=== PATIENT | female | born 1985 | race Caucasian/White ===

== ENCOUNTER → 2021-04-07 | Day surgery (SDC) | payer OTHER ==
[~2021-04-07] MED LIST: ALBUTEROL2.5 MG/3 M INH; BUSPIRONE HCL5 MG PO; FLONASE ALLER15.8 ML; HYDROCODON-ACE1 EAC6 PO; HYDROXYZINE HCL25 MG PO; PROZAC40 MG PO; VITAMIN B-121000 MCG PO; VITAMIN D31250 MCG PO; ZYRTEC10 MG PO
[2021-04-07 10:26] LABS: HEMOGLOBIN 12.5 gm/dl (12.3-15.3); RED BLOOD COUNT 4.26 M/UL (4.00-5.10); WHITE BLOOD COUNT 8.8 K/UL (4.5-11.0)
[2021-04-07 10:48] LABS: BUN/CREATININE RATIO 12 (0-10)
== END | disposition home or self-care (01) ==
LOC: OR 09:10
PROVIDERS: Obstetrics & Gynecology
DX: O02.1 Missed abortion (principal); I87.2 Venous insufficiency (chronic) (peripheral); E78.5 Hyperlipidemia, unspecified; E11.9 Type 2 diabetes mellitus without complications; E55.9 Vitamin D deficiency, unspecified; F41.9 Anxiety disorder, unspecified; F32.9 Major depressive disorder, single episode, unspecified; E66.01 Morbid (severe) obesity due to excess calories; Z68.42 Body mass index [BMI] 45.0-49.9, adult; Z79.84 Long term (current) use of oral hypoglycemic drugs; Z79.899 Other long term (current) drug therapy; Z88.8 Allergy status to other drugs, medicaments and biological substances; Z20.822 Contact with and (suspected) exposure to COVID-19
CPT/HCPCS: 80053; 81001; 82962; 85025; J1100; J2001; J2250; J2405; J2704; J2795; J3010; J7120

== ENCOUNTER 2021-08-28 12:23 | Emergency (ER) | payer OTHER ==
[2021-08-28 13:26] LABS: RED BLOOD COUNT 4.96 M/UL (4.00-5.10); WHITE BLOOD COUNT 8.4 K/UL (4.5-11.0)
[2021-08-28 13:46] LABS: BUN/CREATININE RATIO 23 (0-10)
[2021-08-28] MEDS ORDERED: CYCLOBENZAPRINE10 MG PO (14:48)
== END 2021-08-28 15:25 | disposition home or self-care (01) ==
LOC: ER1 12:23
PROVIDERS: Nurse Practitioner
DX: R07.9 Chest pain, unspecified (principal); I10 Essential (primary) hypertension; E11.9 Type 2 diabetes mellitus without complications; Z79.84 Long term (current) use of oral hypoglycemic drugs; Z79.899 Other long term (current) drug therapy
CPT/HCPCS: 71045; 80048; 82550; 82553; 83874; 84484; 85025; 93005; 96372; 99285; J2360

== ENCOUNTER 2021-12-02 03:55 | Emergency (ER) | payer OTHER ==
[~2021-12-02 03:55] MED LIST changes: +CYCLOBENZAPRINE10 MG PO
[2021-12-02 04:29] LABS: HEMOGLOBIN 14.5 gm/dl (12.3-15.3); RED BLOOD COUNT 4.95 M/UL (4.00-5.10); WHITE BLOOD COUNT 13.4 K/UL (4.5-11.0)
[2021-12-02 04:54] LABS: BUN/CREATININE RATIO 18 (0-10)
[2021-12-02] MEDS ORDERED: METOPROLOL SUCC25 MG PO (08:18)
== END 2021-12-02 09:03 | disposition home or self-care (01) ==
LOC: ER1 03:55
PROVIDERS: Family Medicine
DX: I47.1 Supraventricular tachycardia (principal); I10 Essential (primary) hypertension; E11.9 Type 2 diabetes mellitus without complications; Z79.84 Long term (current) use of oral hypoglycemic drugs
CPT/HCPCS: 71045; 80053; 81001; 82550; 82553; 84439; 84443; 84484; 84703; 85025; 93005; 96374; 96375; 99285; J0153

== ENCOUNTER 2022-02-02 19:50 | Emergency (ER) | payer OTHER ==
[~2022-02-02 19:50] MED LIST changes: +METOPROLOL SUCC25 MG PO
[2022-02-02 20:20] LABS: HEMOGLOBIN 13.6 gm/dl (12.3-15.3); RED BLOOD COUNT 4.66 M/UL (4.00-5.10); WHITE BLOOD COUNT 7.7 K/UL (4.5-11.0)
[2022-02-02 21:04] LABS: BUN/CREATININE RATIO 21 (0-10)
== END 2022-02-03 | disposition home or self-care (01) ==
LOC: ER1 19:50
PROVIDERS: Emergency Medicine; Physician Assistant
DX: R00.2 Palpitations (principal); Z86.16 Personal history of COVID-19; I12.9 Hypertensive chronic kidney disease with stage 1 through stage 4 chronic kidney disease, or unspecified chronic kidney disease; N18.9 Chronic kidney disease, unspecified; E11.22 Type 2 diabetes mellitus with diabetic chronic kidney disease
CPT/HCPCS: 71045; 80053; 80307; 81001; 82550; 82553; 83735; 83880; 84439; 84443; 84484; 85025; 85379; 85610; 85730; 87086; 93005; 99285

== ENCOUNTER 2022-04-13 12:48 | Emergency (ER) | payer OTHER ==
[2022-04-13 17:32] LABS: HEMOGLOBIN 15.1 gm/dl (12.3-15.3); RED BLOOD COUNT 5.11 M/UL (4.00-5.10); WHITE BLOOD COUNT 12.6 K/UL (4.5-11.0)
[2022-04-13 17:56] LABS: BUN/CREATININE RATIO 21 (0-10)
[2022-04-13] MEDS ORDERED: BACTRIM DS TAB1 EACH PO (19:24)
== END 2022-04-13 20:55 | disposition home or self-care (01) ==
LOC: ER1 12:48
PROVIDERS: Physician Assistant
DX: N39.0 Urinary tract infection, site not specified (principal); E11.22 Type 2 diabetes mellitus with diabetic chronic kidney disease; N18.9 Chronic kidney disease, unspecified; Z20.822 Contact with and (suspected) exposure to COVID-19
CPT/HCPCS: 80053; 81001; 83690; 84703; 85025; 87040; 87086; 96361; 96374; 96375; 99284; J1200; J2543; J2930; Q9967; U0002